=== PATIENT | female | born 1970 | race Caucasian/White ===

== ENCOUNTER 2021-10-23 14:50 | Emergency (ER) | payer MEDICAID ==
[~2021-10-23] VITALS: Ht 167.6 cm; Wt 74.0 kg
[2021-10-23 15:09] VITALS: BP 181/84
[2021-10-23] MEDS ORDERED: HYDR-2155 PO (15:58)
[2021-10-23] MEDS ORDERED: CLIN150C16 PO (15:58)
--- NOTE | 2021-10-23 15:59 | PHYS DOC ---
Past History Additional Past Medical Histor: Colitis (LINDA SAEZ APRN) Past Surgical History: , Other Additional Past Surgical Histo: Right knee ACL (LINDA SAEZ APRN) Alcohol Use: None (LINDA SAEZ APRN) Adult General Chief Complaint Chief Complaint: WOUND CHECK HPI HPI Patient is a 51-year-old female presents to the emergency department requesting wound evaluation of her left foot diabetic ulcer. Patient reports she was stung by a jellyfish in May 2021, has been treating a foot ulcer to her left foot since that incident. Patient reports she has an appointment with [facility] wound care in [place] on 28 October 2021 which is in 5 days. Patient reports today increased tingling and pain sensation to her foot ulcer site, denies increase in infection or drainage however worries about infection, reports she started a clindamycin regimen 2 weeks ago but has moved to the [facility] this past week and has misplaced her clindamycin medication. Patient reports 10 out of 10 pain that comes and goes. Currently has a constant 4 or 5 out of 10 pain to the left foot diabetic ulcer site. Patient states she has been dressing the wound daily as directed by her wound care doctor. Patient states she wishes to find a primary care in the [facility] as her previous physicians are located in [place]. Patient denies recent fever or chills, denies numbness or tingling to her left foot, denies other physical complaints or physical concerns. (LINDA SAEZ APRN) Review of Systems Review of Systems 14 body systems of review of systems have been reviewed. See HPI for pertinent positives and negative responses, otherwise all other systems are negative, nonpertinent or noncontributory. Constitutional: Negative except as outlined in HPI above. Skin: Negative except as outlined in HPI above. Eyes: Negative except as outlined in HPI above. HENT: Negative except as outlined in HPI above. Respiratory: Negative except as outlined in HPI above. Cardiovascular: Negative except as outlined in HPI above. GI: Negative except as outlined in HPI above. : Negative except as outlined in HPI above. Musculoskeletal: Negative except as outlined in HPI above. Integument: Negative except as outlined in HPI above. Neurologic: Negative except as outlined in HPI above. Endocrine: Negative except as outlined in HPI above. Lymphatic: Negative except as outlined in HPI above. Psychiatric: Negative except as outlined in HPI above. (LINDA SAEZ APRN) Allergies Allergies Allergies Coded Allergies Type Severity Reaction Last Updated Verified sulfamethoxazole Allergy Unknown 10/23/21 Yes trimethoprim Allergy Unknown 10/23/21 Yes (LINDA SAEZ APRN) Physical Exam Physical Exam Constitutional: Well developed, well nourished, no acute distress, non-toxic appearance. 51-year-old female in no apparent distress. HENT: Normocephalic, atraumatic. Eyes: Conjunctiva normal, no discharge. Neck: Normal range of motion, no stridor. Cardiovascular: No cyanosis appreciated, distal cap refill less than 2 seconds. Lungs & Thorax: Patient is in no respiratory distress, no audible adventitious lung sounds appreciated. Abdomen: Nontender, no abnormalities noted. Skin: Warm, dry, no erythema, no rash. See extremity note for focused skin examination. Back: No tenderness, no deformities. Extremities: No tenderness, no cyanosis, no clubbing, ROM intact, no edema. Except for top of left foot near distal aspect of metatarsals 3 and 4 there is a stage III ulcer without eschar, edges slightly erythematous, no lymphangina appreciated, there is no swelling or erythema of the left foot appreciated, 2+ dorsalis pedis/posterior tibial pulses bilaterally. Distal cap refill is less than 2 seconds all toes, no loss of sensation distally to diabetic foot ulcer, there is muscle tissue/fascia, extensor tendons exposed, no purulent drainage or infectious process appreciated, the foot ulcer is not malodorous. Pain to palpation around diabetic foot ulcer. There was a clean dressing in place that was removed for wound evaluation. Neurologic: Alert and oriented X 3, normal motor function, normal sensory fun ction, no focal deficits noted. Psychologic: Affect normal, judgement normal, mood normal. (LINDA SAEZ APRN) Current Patient Data Vital Signs Vital Signs Date Time Temp Pulse Resp B/P (MAP) Pulse Ox O2 Delivery O2 Flow Rate FiO2 10/23/21 15:09 98.6 86 16 181/84 (116) 98 Room Air (LINDA SAEZ APRN) EKG EKG [] (LINDA SAEZ APRN) Radiology/Procedures Radiology/Procedures [] (LINDA SAEZ APRN) Heart Score C/O Chest Pain: No Risk Factors: Risk Factors: DM, Current or recent (<one month) smoker, HTN, HLP, family histo ry of CAD, obesity. Risk Scores: Risk Factors: DM, Current or recent (<one month) smoker, HTN, HLP, family history of CAD, obesity. (LINDA SAEZ APRN) Course & Med Decision Making Course & Med Decision Making Pertinent Labs and Imaging studies reviewed. (See chart for details) 51-year-old female, vital signs reviewed, presents emergency department for diabetic foot ulcer evaluation. Physical examination reveals diabetic foot ulce r measuring 2 cm x 4 cm on the top of left foot near toes 3 and 4, the foot ulcer appears to be well taken care of, patient reports close follow-up with wound care, has appointment in 5 days for wound care evaluation, patient chief concern is losing her clindamycin medication and Cypress medication. Patient is requesting refill of these 2 medications. Suspicious for drug-seeking behavior, patient states "if you could just write me for 5 days worth of Cypress, I would like the 5 325 pills. You guys can write for that out of the ER can you? ". Patient very anxious during physical examination, rocking back and forth in chair, complaining of 10 out of 10 diabetic foot pain, yelling out in pain, which immediately resolved and patient returned to a no apparent distress state when told she would be receiving a dose of clindamycin and Cypress in the ED. Patient immediately became happy and calm. Discussed with patient will refill clindamycin medication and Cypress medication, will only give 12 tablets, patient became thankful, stating she would make them work until she has seen by wound care in 5 days, patient states "I will break the pills in half to make them last. " Discussed with patient continual wound care as directed by her credit collection specialist, patient requests a prescription for Polysporin. Reviewed return to ER precautions and concerns, discussed with patient will provide information for area health care providers, and podiatry for ongoing foot care, patient states she will continue to see her wound care physicians at [facility], patient gave verbal understanding of and is amenable to ED discharge planning. Discussed with the patient all findings and diagnostic testing as well as the need to follow-up with their primary care provider for further evaluation and treatment or return to the ED if any new or worsening symptoms. Strict return precautions were also discussed at length, the patient voiced understanding and agreement with the discharge planning. The patient was nontoxic in appearance, in no apparent distress, and hemodynamically stable at the time of disposition. (LINDA SAEZ APRN) Dragon Disclaimer Dragon Disclaimer This electronic medical record was generated, in whole or in part, using a voice recognition dictation system. (LINDA SAEZ APRN) Attending Co-Sign The patient was seen and interviewed as well as examined at the bedside. The chart was reviewed. The case was discussed. Agree with the plan of care. (JERICHO DAY DO) Departure Departure: Impression: Primary Impression: Diabetic foot ulcer Additional Impression: Visit for wound check Disposition: HOME / SELF CARE / HOMELESS Condition: GOOD Referrals: PCP,MASON (PCP) LON TOTH DPRick Patient Instructions: Wound Check Additional Instructions: You were seen today in the emergency department for a diabetic foot ulcer of your left foot. This does not appear infected at this time, please continue to perform your daily wound care procedures as directed by your primary care doc tor. Please keep your appointment at the wound care center at [facility] on 28 October 2021. Take all home medications as prescribed by your primary care doctor. Return to the emergency department for worsening symptoms or other concerns. You had indicated you recently moved to the [facility] within the past 2 weeks, you may consider [facility] at [facility] [address] [address] [place] [address], their telephone number is area code [phone]. I have also provided information for a local scale balancer Dr. Toth to follow-up with for ongoing diabetic foot concerns. Thank you for visiting our Emergency Department. It was a pleasure taking care of you today in the emergency department and we appreciate you trusting us with your care. If any additional problems come up don't hesitate to return to visit us. Please follow up with your primary care provider so they can plan additional care if needed and know about the problem that you had. If symptoms worsen come back to the Emergency Department. Any concerning symptoms that start such as chest pain, shortness of air, weakness or numbness on one side of the body, running high fevers or any other concerning symptoms return to the ER. Scripts Bacitracin/Polymyxin B Sulfate (POLYSPORIN OINTMENT) 28.3 Gm Oint...g. 28.3 GM TP TID for wound care, #1 MISC 0 Refills Apply to diabetic wound for wound care procedures. Prov: LINDA SAEZ APRN 10/23/21 Hydrocodone Bit/Acetaminophen (HYDROCODONE-APAP 5-325 ) 1 Each Tablet 1 TAB PO PRN Q6HRS PRN for PAIN, #12 TAB 0 Refills Prov: LINDA SAEZ APRN 10/23/21 Clindamycin Hcl (CLINDAMYCIN HCL) 150 Mg Capsule 3 CAP PO TID for diabetic foot ulcer for 10 Days, #90 CAP 0 Refills Prov: LINDA SAEZ APRN 10/23/21 Problem Qualifiers Primary Impression: Diabetic foot ulcer Diabetic foot ulcer location: midfoot Diabetes mellitus type: type 1 Laterality: left Non-pressure ulcer stage: with muscle involvement without evidence of necrosis Qualified Codes: E10.621 - Type 1 diabetes mellitus with foot ulcer; L97.425 - Non-pressure chronic ulcer of left heel and midfoot with muscle involvement without evidence of necrosis LINDA SAEZ APRN Oct 23, 2021 15:59 JERICHO DAY DO Oct 24, 2021 10:25
[2021-10-23] MEDS ORDERED: HYDROcodone/APAP 5/325MG 1 TAB TABLET PO ONE (16:00)
[2021-10-23] MEDS ORDERED: CLINDAMYCIN HCL 150 MG CAPSULE PO ONE (16:00)
[2021-10-23] MEDS ORDERED: IBUPROFEN 600 MG TABLET. PO ONE (16:00)
[2021-10-23] MEDS ORDERED: BACITRACIN ZINC TOPICAL OINT PACKET. TP ONE (16:00)
[2021-10-23] MEDS ORDERED: BACI28.34 TP (16:05)
== END 2021-10-23 16:35 | disposition home or self-care (01) ==
LOC: ER 14:50
DX: Z48.00 Encounter for change or removal of nonsurgical wound dressing (principal); E11.621 Type 2 diabetes mellitus with foot ulcer; Z88.1 Allergy status to other antibiotic agents; Z88.2 Allergy status to sulfonamides
CPT/HCPCS: 99284